=== PATIENT | male | born 1945 | race Caucasian/White ===

== ENCOUNTER 2025-07-24 18:44 | Emergency (ER) | payer OTHER ==
[~2025-07-24] VITALS: Ht 170.2 cm; Wt 74.8 kg
[~2025-07-24 18:44] MED LIST: Z.0.DICLOFENAC SODI7 PO; Z.0.LANSOPRAZOLE30 M PO; Z.0.SINGULAIR10 MG PO; Z.0.ZOLPIDEM TARTRA1 PO
[2025-07-24 19:50] VITALS: RESP 18; TEMP 98.1
[2025-07-24 22:18] LABS: BASOPHILS % 0.3 % (0.0-1.0); EOSINOPHILS % 1.1 % (0.0-6.0); LYMPHOCYTES % 23.6 % (18.0-39.1); MONOCYTES % 11.2 % (4.4-11.3); NEUTROPHILS % 63.1 % (38.7-80.0); RED CELL DISTRIBUTION WIDTH 14.4 % (11.7-14.4)
[2025-07-24 22:36] LABS: EST GLOMERULAR FILTRATION RATE 91.0 ML/MIN (>=60)
[2025-07-25] VITALS: PULSE 92
[2025-07-25 02:01] VITALS: BP 108/75; O2SAT 95
== END 2025-07-25 00:40 | disposition home or self-care (01) ==
LOC: ER 19:59
DX: Z43.4 Encounter for attention to other artificial openings of digestive tract (principal); K76.9 Liver disease, unspecified; I71.43 Infrarenal abdominal aortic aneurysm, without rupture
CPT/HCPCS: 36415; 74176; 80053; 85025; 99284